=== PATIENT | male | born 1950 | race Caucasian/White ===

== ENCOUNTER 2020-09-29 11:30 | Emergency (ER) | payer OTHER, SELFPAY ==
[2020-09-29 11:31] VITALS: BP 189/86; PULSE 66; RESP 16; TEMP 36.3; O2SAT 98; BMI 28.0
--- NOTE | 2020-09-29 11:46 | CT_ITS ---
STUDY: CT ABDOMEN AND PELVIS WITHOUT CONTRAST REASON FOR EXAM: Male, 70 years old. Pain -- Right flank pain suspect stone vs appy RADIATION DOSAGE (If Supplied By Facility): CTDIvol = ( 14.28 ) mGy, DLP = ( 738.35 ) mGycm TECHNIQUE: Transaxial images were obtained from the dome of the diaphragm to the symphysis pubis without oral contrast, and without intravenous contrast. Sagittal and coronal images were reconstructed. Individualized dose optimization techniques were used for this CT. COMPARISON: None. FINDINGS: The visualized lung bases are unremarkable. There is decreased attenuation of the liver consistent with steatosis. Normal gallbladder and extrahepatic biliary system. Normal spleen. Normal pancreas. Normal bilateral adrenal glands. There is mild hydroureteronephrosis. There is a 3 mm calcification at the right UVJ (axial image #147 series 2) Unremarkable left kidney. Normal visualized stomach. Normal small intestine. There are multiple colonic diverticula consistent with diverticulosis. The appendix is visualized and appears normal. There is atherosclerotic calcifications of the abdominal aorta, Normal urinary bladder. Normal abdominal wall. There are diffuse degenerative changes of the visualized lumbar spine. CT/Abdomen/Pelvis without Cont IMPRESSION: 3 mm right UVJ calculus with mild hydronephrosis on the right. Electronically Signed: Jaren Brown MD at 12:21 EDT Tel , Service support ,
--- NOTE | 2020-09-29 11:49 | ED.DCSUM_ITS ---
- ER Visit Summary Date of Service: 09/29/20 Chief Complaint: Right flank pain History of Present Illness: The patient is a 70 M 3 of hypertension, gout and hypothyroidism. No prior abdominal surgeries. Patient states he was feeling fine until about 2 hours ago. He was at home sitting down watching TV when he had sudden onset of right flank and abdominal pain. He denies any nausea, vomiting, diarrhea or constipation. No melena. No dysuria. No fever or chills. Pain has been constant for the last 2 hours. Nothing particular makes it better or worse. Has never had pain like this before. Still has his appendix. No prior history of kidney stones. Physical Examination: Well-appearing older male accompanied by his . Vital signs stable and afebrile. HEENT exam unremarkable. Neck nontender no lymphadenopathy. Lungs clear to auscultation bilaterally. Heart regular rhythm rate about 65 no murmur. Abdomen soft. Nondistended normal bowel sounds no peritoneal signs. There is no reproducible abdominal tenderness. His right flank and lower quadrant pain is not reproducible. He has no Westfall sign. No McBurney's point tenderness. No obstruction. No pulsatile mass. Patient moving all 4 extremities. No edema. Neurologically is awake and alert with no focal motor deficits. Test Results: Normal white count of 7. Hemoglobin 15. Chemistries unremarkable except creatinine is elevated 1.75 I discussed that with the patient and his w rigo the need to have that reevaluated. Liver enzymes unremarkable. Urinalysis no signs of infection 250 occult blood on the macro. No signs of infection. CAT scan without contrast of the abdomen pelvis is read by the radiologist shows a 3 mm right UVJ stone with mild hydronephrosis on the right. Consistent with his pain and symptoms. Repeat exam at 1255 patient is doing well. We went over all his test results. He will be given 1 more dose of morphine prior to discharge. Emergency Department Course and Treatment: Older male with sudden onset right flank pain. Differential diagnosis at this time is primarily right-sided kidney stone. This could also be appendicitis versus other etiologies. Labs, urinalysis and CT are being obtained. He will be given IV morphine and Zofran. Treatment Plan: Urine strainer. Watch for stone. Return if worse. Fluids and rest. Prevent constipation. Disposition: Discharge Impression: Acute right-sided abdominal pain Canary to acute 3 mm right UVJ stone with mild hydronephrosis Mild renal insufficiency with a creatinine 1.75 This note was generated with [employer] dictation software. It may contain incorrect words, spelling, and punctuation that were not noted in review of the chart prior to signing ED Disposition - Plan for ED Patient: Referrals: [facility] Doctor,Out of [NON-STAFF] -
[2020-09-29] MEDS: 0.9% Normal Saline 1,000 ML 1000 ML IV (11:56)
[2020-09-29] MEDS: morphine 8 MG/ML Syringe 6 MG IV ×2 (11:57→13:01)
[2020-09-29] MEDS: Ondansetron 4 MG/2 ML Vial IV (11:57)
[2020-09-29 12:10] LABS: Bacteria 0 SEEN /hpf (None Seen); Mucous, Urine 0 SEEN /hpf (<or=2+); Squamous Epithelial Cells - UA 0 SEEN /hpf (0-5); White Blood Cells 0 SEEN /hpf (0-5)
[2020-09-29 12:11] LABS: Absolute Lymphocyte Count 2.56 X10^3/uL (0.83-4.51); Absolute Neutrophil Count 3.4 X10^3/uL (2.0-7.7); Basophil# 0.03 X10^3/uL; Basophil% 0.4 % (0-1); Color, Urine Yellow (Yellow); Eosinophil# 0.33 X10^3/uL; Eosinophils% 4.6 % (0-5); Glucose, Dipstick Normal (Normal); Hematocrit 46.2 % (40-54); Hemoglobin 15.3 g/dL (13.0-16.5); Ketone-Dipstick Negative (Negative); Leukocyte Esterase-Dipstick Negative /ul (Negative); Lymphocyte # 2.56 X10^3/ul (4.0); Lymphocyte % 35.8 % (19-41); Mean Corp Hgb Conc 33.1 g/dL (32-36); Mean Corpuscular Hgb 26.8 pg (27.0-32.0); Mean Corpuscular Volume 81.1 fL (80-94); Mean Platelet Vol. 10.2 fl (6.2-12.0); Monocyte# 0.79 X10^3/uL; NRBC Flagged by Analyzer 0 % (0-5); Neutrophil # 3.43 X10^3/uL (2.7-7.7); Neutrophil % 47.9 % (47-70); Nitrite-Dipstick Negative (Negative); Occult Blood-Urine 250 /ul (Negative); Platelet Count 178 K/mm3 (150-450); Protein-Dipstick 30 mg/dl (Negative); RBC Distribution Width CV 12.7 % (11.6-14.6); RBC Distribution Width SD 37.3 fl (35.1-43.9); Specific Gravity, Urine 1.015 (1.002-1.030); Urine Bilirubin Dipstick Negative (Negative); Urine Clarity Clear (Clear); Urine Urobilinogen Normal (Normal); Urine pH 6.5 (5.0 - 8.0); White Blood Count 7.2 K/mm3 (4.4-11.0)
[2020-09-29 12:21] LABS: Red Blood Cells-Urine 0-5 SEEN /hpf (0-5)
[2020-09-29 12:28] LABS: AST(SGOT) 27 U/L (15-37); Alanine Aminotransfer ALT/SGPT 46 U/L (16-61); Alkaline Phosphatase 88 U/L (45-117); Anion Gap 7 (5-15); BUN 18 mg/dL (7-18); BUN/Creat Ratio 10.3 RATIO (10-20); Chloride 105 mmol/L (98-107); Creatinine, Serum 1.75 mg/dL (0.70-1.30); EST Glomerular Filtration Rate 41 mL/min (>60); Est Glom Filt Rate - Afr Amer 50 mL/min (>60); Globulin 3.9 g/dL (2.2-4.2); Glucose 127 mg/dL (74-106); Potassium 3.7 mmol/L (3.5-5.1); Protein, Total 7.9 g/dL (6.4-8.2); Sodium Level 143 mmol/L (136-145)
[2020-09-29 12:30] VITALS: BP 167/80; PULSE 68; RESP 15
--- NOTE | 2020-09-29 12:57 | ED.DEP ---
ED Disposition - Plan for ED Patient: Disposition: Home or Assisted Living Instructions: ED Kidney Stone w/ Colic Prescriptions: Hydrocodone Bitart/Apap 5-325 [Emerado 5MG-325MG] 1 - 2 tablet PO Q4H PRN PRN 3 Days #14 tab PRN Reason: Pain Prescription Printed Referrals: [facility],Out of [NON-STAFF] - 1-2 Weeks Additional Instructions: If a 3 mm kidney stone on the right just above your bladder. This should pass. Strain your urine to ensure you passed the stone. You do not need to keep it you can throw it out. Fluids such as water, 7-Up or Gatorade. Emerado for pain. No driving while you are on the Emerado. Watch for constipation. Plenty of fluids and fiber and stool softener to prevent constipation. Return if intractable pain, vomiting or fever. Follow-up your doctor to have your kidney function rechecked today. Your creatinine was 1.75 that is higher than normal. Get it rechecked in the next 1 to 3 weeks.
[2020-09-29 13:25] VITALS: BP 175/87; PULSE 75; RESP 15
== END 2020-09-29 13:25 | disposition home or self-care (01) ==
PROVIDERS: Emergency Provider Emergency Medicine
DX: N13.2 Hydronephrosis with renal and ureteral calculous obstruction (principal); N28.9 Disorder of kidney and ureter, unspecified; I10 Essential (primary) hypertension; E03.9 Hypothyroidism, unspecified; M10.9 Gout, unspecified; Z79.899 Other long term (current) drug therapy
CPT/HCPCS: 74176; 80053; 81001; 85025; 96361; 96374; 96375; 99283; J7030; J2405

== ENCOUNTER 2023-10-25 19:18 | Inpatient (IN) | payer OTHER, SELFPAY ==
[2023-10-25 19:20] VITALS: BP 164/76; BP 182/80; PULSE 81; PULSE 85; RESP 16; TEMP 36.2; O2SAT 97; BMI 27.8
--- NOTE | 2023-10-25 20:01 | EKG12_ITS ---
Test Reason : CP Blood Pressure : / mmHG Vent. Rate : 086 BPM Atrial Rate : 086 BPM P-R Int : 168 ms QRS Dur : 096 ms QT Int : 348 ms P-R-T Axes : 044 017 001 degrees QTc Int : 416 ms Normal sinus rhythm Normal ECG Confirmed by МАРИНА DUNCAN MD ([id number]), editor book KEI ANAYA ([id number]) on 10/26/2023 8:28:20 AM Referred By: AR Confirmed By:МАРИНА DUNCAN MD
--- NOTE | 2023-10-25 20:08 | ED.VIS.CHEST ---
HPI <CASPER Galaviz - Last Filed: 10/25/23 22:13> History of Present Illness Chief Complaint: Chest Pain Narrative Narrative: Patient presenting today due to midsternal chest pain that radiates to his bilateral shoulder blades and jaw that started 3 days ago and acutely worsened today. He reports that the pain is a constant dull ache that is worse with exertion. He denies any cardiac history. He has not had any recent cardiac testing. He denies feeling short of breath or any fevers, chills, abdominal pain, nausea, or vomiting. He reports a PMH of hypertension, osteoarthritis, and psoriasis. PE Risk Factors: Negative for Recent Travel/Surgery, Recent Immobilization, Prior DVT or PE or Cancer PFSH <CASPER Galaviz - Last Filed: 10/25/23 22:13> PFSH Medical History GERD (gastroesophageal reflux disease) Hypertension Hypothyroid Psoriatic arthritis Home Medications adalimumab 40 mg/0.4 mL subcutaneous syringe kit 40 mg SQ QWEEK 09/29/20 [History Last Taken Unknown] allopurinol 100 mg tablet 200 mg PO DAILYCM 09/29/20 [History Last Taken Unknown] amlodipine 10 mg tablet 10 mg PO DAILY 09/29/20 [History Last Taken Unknown] propranolol 160 mg capsule,24 hr,extended release 160 mg PO DAILY 09/29/20 [History Last Taken Unknown] acetaminophen PO 10/25/23 [History Last Taken Unknown] aspirin 81 mg capsule 81 mg PO DAILY 10/25/23 [History Last Taken Unknown] cholecalciferol (vitamin D3) 125 mcg (5,000 unit) tablet (Vitamin D3) 125 mcg PO DAILY 10/25/23 [History Last Taken Unknown] esomeprazole magnesium 40 mg capsule,delayed release 40 mg PO DAILY 10/25/23 [History Last Taken Unknown] hydrochlorothiazide 25 mg tablet 25 mg PO DAILY 10/25/23 [History Last Taken Unknown] levothyroxine 100 mcg tablet (Euthyrox) 100 mcg PO DAILY 10/25/23 [History Last Taken Unknown] Allergy/AdvReac Type Severity Reaction Status Date / Time fish derived Allergy Severe Anaphylaxis Verified 10/25/23 19:23 [seafood - derived] shellfish derived Allergy Severe Anaphylaxis Verified 10/25/23 19:23 [seafood - shellfish] lisinopril AdvReac Other Verified 10/25/23 19:23 losartan AdvReac Other Verified 10/25/23 19:23 Social History Smoking Status: Former smoker ROS <CASPER Galaviz - Last Filed: 10/25/23 22:13> ROS ED Constitutional Constitutional ED: Denies chills or fever(s) Cardiovascular Cardiovascular: Reports chest pain; Denies palpitations Respiratory/Chest Respiratory/Chest: Denies cough or dyspnea Gastrointestinal Gastrointestinal: Denies abdominal pain, nausea or vomiting Musculoskeletal Musculoskeletal: Denies arthralgias or myalgias Integumentary Denies rash Neurologic Neurologic: Denies weakness EXAM <CASPER Galaviz - Last Filed: 10/25/23 22:13> Physical Exam Const Vital Signs: 10/25/23 19:20 10/25/23 19:20 10/25/23 19:27 Temperature 97.1 F L 97.1 F L Temperature Source Temporal Temporal Pulse Rate 85 81 Respiratory Rate 16 16 Respiratory Effort Short of Breath Blood Pressure 182/80 H 164/76 H Blood Pressure Mean 114 105 Pulse Ox 97 97 Oxygen Delivery Method Room Air Room Air 10/25/23 20:19 10/25/23 21:00 10/25/23 22:00 Temperature Temperature Source Pulse Rate 85 87 85 Respiratory Rate 16 16 16 Respiratory Effort Blood Pressure 150/70 H 157/71 H 138/65 H Blood Pressure Mean 96 99 89 Pulse Ox 97 97 94 Oxygen Delivery Method Room Air Room Air Room Air 10/25/23 22:41 Temperature 97.8 F Temperature Source Pulse Rate 82 Respiratory Rate 18 Respiratory Effort Blood Pressure 140/62 H Blood Pressure Mean 88 Pulse Ox 94 Oxygen Delivery Method Positive well nourished, well developed and no apparent distress General Appearance ED: well developed HEENT Reports normocephalic and head/scalp atraumatic Mouth ED: Yes moist mucous membranes normal Eyes PERRL and EOMs intact bilaterally Neck full ROM and supple Chest Wall inspection of chest normal Resp normal respiratory effort and clear to auscultation bilaterally Cardio regular rate and regular rhythm GI soft to palpation, non-tender, non-distended and no masses Back/Spine normal ROM and normal to inspection Extremity normal to inspection and full ROM Neuro oriented x3, CN's II-XII intact bilaterally, moves all extremities, no focal motor deficits and no sensory deficits noted Sensorium / Orientation: awake and alert Psych mental status grossly normal and thought process normal Skin no rashes or lesions noted and no wounds <Dr. Jamey Molina, - Last Filed: 10/26/23 00:37> Physical Exam Const Vital Signs: 10/25/23 19:20 10/25/23 19:20 10/25/23 19:27 Temperature 97.1 F L 97.1 F L Temperature Source Temporal Temporal Pulse Rate 85 81 Respiratory Rate 16 16 Respiratory Effort Short of Breath Blood Pressure 182/80 H 164/76 H Blood Pressure Mean 114 105 Pulse Ox 97 97 Oxygen Delivery Method Room Air Room Air 10/25/23 20:19 10/25/23 21:00 10/25/23 22:00 Temperature Temperature Source Pulse Rate 85 87 85 Respiratory Rate 16 16 16 Respiratory Effort Blood Pressure 150/70 H 157/71 H 138/65 H Blood Pressure Mean 96 99 89 Pulse Ox 97 97 94 Oxygen Delivery Method Room Air Room Air Room Air 10/25/23 22:41 Temperature 97.8 F Temperature Source Pulse Rate 82 Respiratory Rate 18 Respiratory Effort Blood Pressure 140/62 H Blood Pressure Mean 88 Pulse Ox 94 Oxygen Delivery Method <Dr. Jamey Molina, - Last Filed: 10/26/23 00:37> Heart Score History: Moderately Suspicious ECG: Normal Age: >/= 65 years Risk Factors: 1 or 2 Risk Factors Troponin: >/=3 x Normal Limit Score: 6 MDM <CASPER Galaviz - Last Filed: 10/25/23 22:13> [facility] Narrative Medical decision making narrative: Patient presenting today with chest pain that is worse with exertion, symptoms have been present for 3 days but acutely worsened today. He is well-appearing and in no acute distress. Cardiac workup will be obtained. He has a low Wells score and low modified Dubois score, low suspicion for PE. Chest x-ray negative for any acute cardiopulmonary abnormality, labs show sodium 134, BUN 22, creatinine 1.64, BUN slightly elevated but creatinine consistent with previous labs. He was given aspirin. Initial troponin 13, delta is pending. Workup is pending. He is scheduled to have outpatient cardiac testing done in the next few weeks. He is supposed to undergo a EGD tomorrow due to GERD. He did eat pizza today prior to his symptoms worsening and is wondering if this could be related to GERD, he was given a GI cocktail and will be reassessed. Patient was handed off to the attending, disposition pending. Lab Data Attestation: I reviewed the patient's lab results. Labs: Laboratory Results - last 24 hr 10/25/23 10/25/23 19:33 22:20 WBC 7.9 RBC 6.10 Hgb 16.5 Hct 48.1 MCV 78.9 L MCH 27.0 MCHC 34.3 RDW Std Deviation 35.9 RDW Coeff of Josiah 12.7 Plt Count 254 MPV 11.5 Immature Gran % (Auto) 0.400 Neut % (Auto) 79.6 H Lymph % (Auto) 18.8 L [place] % (Auto) 0.9 Eos % (Auto) 0.0 Baso % (Auto) 0.3 Absolute Neuts (auto) 6.3 Absolute Lymphs (auto) 1.49 Nucleated RBC % 0 PT 14.4 INR 1.1 APTT 32.3 Sodium 134 L Potassium 4.5 Chloride 104 Carbon Dioxide 22.0 Anion Gap 8 BUN 22 H Creatinine 1.64 H Estim Creat Clear Calc 44.83 Est GFR (MDRD) Af Amer 53 L Est GFR (MDRD) Non-Af 44 L BUN/Creatinine Ratio 13.4 Glucose 227 H Calcium 9.8 Troponin I High Sens 13 260 H* Radiography X-Ray: Read by ED Physician and Read by Radiologist Diagnostic Testing: Clinical Impression(s) from Imaging Studies Chest X-Ray 10/25/23 20:10 IMPRESSION: Degenerative changes, as described above. No demonstrated acute cardiopulmonary process. Electronically Signed: Landon Chakraborty MD at 20:34 EDT , EKG Initial EKG: Comments: 86 bpm, normal sinus rhythm, no ST elevation, no signs of cardiac ischemia, reviewed and interpreted by attending ED physician <Dr. Jamey Molina, DO - Last Filed: 10/26/23 00:37> [facility] Narrative Medical decision making narrative: Patient presenting today with chest pain that is worse with exertion, symptoms have been present for 3 days but acutely worsened today. He is well-appearing and in no acute distress. Cardiac workup will be obtained. He has a low Wells score and low modified Dubois score, low suspicion for PE. Chest x-ray negative for any acute cardiopulmonary abnormality, labs show sodium 134, BUN 22, creatinine 1.64, BUN slightly elevated but creatinine consistent with previous labs. He was given aspirin. Initial troponin 13, delta is pending. Workup is pending. He is scheduled to have outpatient cardiac testing done in the next few weeks. He is supposed to undergo a EGD tomorrow due to GERD. He did eat pizza today prior to his symptoms worsening and is wondering if this could be related to GERD, he was given a GI cocktail and will be reassessed. This patient was seen with a PA/MARINE SAFETY OFFICER Individually assessed they patient including history and physical. I have reviewed everything on the chart that is available and agree with the documentation provided by the PA/MARINE SAFETY OFFICER including discussion about the assessment, treatment plan, discussion, and return precautions. Patient presenting with chest pain epigastric pain. He is really had this for about 3 days and is worsened today but it has been pretty persistent. He does state that it is exertional to some degree over the last 3 days and is worse today. Patient states that he has had 3 days of symptoms and today noticed pressure and burning in his epigastrium. He did eat pizza today. He states that he supposed to go to the [facility] tomorrow for upper endoscopy has been told that he has inflammation of stomach and polyps. He supposed to have a repeat upper endoscopy tomorrow. Cardiac workup was pursued. EKG on my interpretation shows a sinus rhythm with a ventricular to 86 beats minute without sign of ischemic change or ectopy. Chest x-ray my interpretation shows no acute process. CBC showed a normal white blood cell count 7.9. Hemoglobin 16.5. Platelets normal at 254. Creatinine near baseline at 1.64. Glucose 227 without anion gap initial troponin is 13 and the patient had been reporting symptoms all day long worsening after pizza so we gave him a GI cocktail and he relates that his pain was improved. At this point we discussed foods he should avoid. Given the patient's improved symptoms he felt he was stable for discharge home however he had a delta troponin drawn before he left the ER and it returned at 260 from 13 on his initial evaluation. Patient had left the ER but was called back immediately and returned. He states he still has some pain in his shoulder blades but his dyspepsia is improved. He is given nitroglycerin to treat his chest pain. Will discuss with cardiology and the hospitalist for admission. Patient already received aspirin earlier. Discussed with Dr. Khanna who recommended admission and he will evaluate him in the morning. Discussed with hospitalist for admission. Impression: 1. NSTEMI 2. Dyspepsia Lab Data Labs: Laboratory Results - last 24 hr 10/25/23 10/25/23 19:33 22:20 WBC 7.9 RBC 6.10 Hgb 16.5 Hct 48.1 MCV 78.9 L MCH 27.0 MCHC 34.3 RDW Std Deviation 35.9 RDW Coeff of Josiah 12.7 Plt Count 254 MPV 11.5 Immature Gran % (Auto) 0.400 Neut % (Auto) 79.6 H Lymph % (Auto) 18.8 L [place] % (Auto) 0.9 Eos % (Auto) 0.0 Baso % (Auto) 0.3 Absolute Neuts (auto) 6.3 Absolute Lymphs (auto) 1.49 Nucleated RBC % 0 PT 14.4 INR 1.1 APTT 32.3 Sodium 134 L Potassium 4.5 Chloride 104 Carbon Dioxide 22.0 Anion Gap 8 BUN 22 H Creatinine 1.64 H Estim Creat Clear Calc 44.83 Est GFR (MDRD) Af Amer 53 L Est GFR (MDRD) Non-Af 44 L BUN/Creatinine Ratio 13.4 Glucose 227 H Calcium 9.8 Troponin I High Sens 13 260 H* Radiography Diagnostic Testing: Clinical Impression(s) from Imaging Studies Chest X-Ray 10/25/23 20:10 IMPRESSION: Degenerative changes, as described above. No demonstrated acute cardiopulmonary process. Electronically Signed: Landon Chakraborty MD at 20:34 EDT , Discharge Plan Triage Chief Complaint: Chest Pain ED Midlevel Provider: Venice Hartman ED Provider: Jamey Molina Dx/Rx/DC Orders Clinical Impression: Hx of gastroesophageal reflux (GERD), Chest pain Instructions: ED Chest Pain, Uncertain Cause, ED GERD (Adult) Prescriptions: No Action propranolol 160 MG capsule,extended release 24 hr 160 mg PO DAILY allopurinol 100 MG tablet 200 mg PO DAILYCM amlodipine 10 MG tablet 10 mg PO DAILY adalimumab 40 MG/0.4 ML syringe kit 40 mg SQ QWEEK levothyroxine [Euthyrox] 100 mcg tablet 100 mcg PO DAILY esomeprazole magnesium 40 mg capsule,delayed release(DR/EC) 40 mg PO DAILY hydrochlorothiazide 25 mg tablet 25 mg PO DAILY aspirin 81 mg capsule 81 mg PO DAILY cholecalciferol (vitamin D3) [Vitamin D3] 125 mcg (5,000 unit) tablet 125 mcg PO DAILY acetaminophen [Tylenol] PO [facility] [Primary Care Provider] - Activity Restrictions/Additional Instructions: Please follow-up with your PCP in the next 5 to 7 days. Return for any worsening of your symptoms. Disposition Disposition: Home, Self Care Discharge Date/Time: 10/25/23 22:45
--- NOTE | 2023-10-25 20:10 | RAD_ITS ---
STUDY: X-RAY CHEST REASON FOR EXAM: Male, 73 years old. Chest pain TECHNIQUE: Frontal and lateral views of the chest. COMPARISON: None. FINDINGS: The lungs are clear and expanded. There is no demonstrated pleural abnormality. Normal size heart. Normal mediastinum and neelam. Normal visualized pulmonary arteries. There is atherosclerotic calcification of the aortic arch. There is mild degenerative change of the spine. There is a right shoulder replacement. There is no demonstrated abnormality of the visualized soft tissue structures of the upper abdomen. RAD/Chest PA and Lateral IMPRESSION: Degenerative changes, as described above. No demonstrated acute cardiopulmonary process. Electronically Signed: Landon Chakraborty MD at 20:34 EDT ,
[2023-10-25 20:17] LABS: Absolute Lymphocyte Count 1.49 X10^3/uL (0.83-4.51); Absolute Neutrophil Count 6.3 X10^3/uL (2.0-7.7); Basophil# 0.02 X10^3/uL; Basophil% 0.3 % (0-1); Hematocrit 48.1 % (40-54); Hemoglobin 16.5 g/dL (13.0-16.5); Lymphocyte # 1.49 X10^3/ul (0.83-4.51); Lymphocyte % 18.8 % (19-41); Mean Corp Hgb Conc 34.3 g/dL (32-36); Mean Corpuscular Volume 78.9 fL (80-94); Mean Platelet Vol. 11.5 fl (6.2-12.0); Monocyte# 0.07 X10^3/uL; Monocyte% 0.9 % (0-10); NRBC Flagged by Analyzer 0 % (0-5); Neutrophil # 6.33 X10^3/uL (2.7-7.7); Neutrophil % 79.6 % (47-70); Platelet Count 254 K/mm3 (150-450); RBC Distribution Width CV 12.7 % (11.6-14.6); RBC Distribution Width SD 35.9 fl (35.1-43.9); White Blood Count 7.9 K/mm3 (4.4-11.0)
[2023-10-25 20:19] VITALS: BP 150/70; PULSE 85; RESP 16; O2SAT 97
[2023-10-25] MEDS: Aspirin 81 MG TAB.CHEW 324 MG PO (20:19)
[2023-10-25 20:55] LABS: Anion Gap 8 (5-15); BUN 22 mg/dL (7-18); BUN/Creat Ratio 13.4 RATIO (10-20); Calcium,Total 9.8 mg/dL (8.5-10.1); Chloride 104 mmol/L (98-107); Creatinine, Serum 1.64 mg/dL (0.70-1.30); EST Glomerular Filtration Rate 44 mL/min (>60); Est Glom Filt Rate - Afr Amer 53 mL/min (>60); Estimated Creatinine Clearance 44.83 ml/min; Glucose 227 mg/dL (74-106); Potassium 4.5 mmol/L (3.5-5.1); Sodium Level 134 mmol/L (136-145); Troponin-I HS (w/2H Reflex) 13 pg/mL (3.0-78.0)
[2023-10-25 21:00] VITALS: BP 157/71; PULSE 87; RESP 16; O2SAT 97
[2023-10-25 22:00] VITALS: BP 138/65; PULSE 85; RESP 16; O2SAT 94
[2023-10-25 22:15] LABS: Reflex Troponin-HS? (from REC) Y
[2023-10-25] MEDS: Mag Hydrox/Al Hydrox/Simeth 30 ML UDC PO (22:15)
[2023-10-25 22:41] VITALS: BP 140/62; PULSE 82; RESP 18; TEMP 36.6; O2SAT 94
[2023-10-25 22:49] LABS: Troponin-I HS 260 pg/mL (3.0-78.0)
--- NOTE | 2023-10-25 23:36 | EKG12_ITS ---
Test Reason : DYSRHYTHMIA Blood Pressure : / mmHG Vent. Rate : 084 BPM Atrial Rate : 084 BPM P-R Int : 190 ms QRS Dur : 098 ms QT Int : 354 ms P-R-T Axes : 044 017 000 degrees QTc Int : 418 ms Normal sinus rhythm Normal ECG Confirmed by DAKOTA GOSS, МАРИНА ([id number]), videotape editor KEI ANAYA ([id number]) on 10/26/2023 8:30:10 AM Referred By: YARA Confirmed By:МАРИНА DUNCAN MD
--- NOTE | 2023-10-25 23:42 | ED.RN ---
[facility]ED [facility] ABOUT THE PT BEING ADMITTED. THEY DID NOT ANSWER, IT RANG UNTIL I WAS DISCONNECTED
[2023-10-25 23:55] LABS: International Normalized Ratio 1.1; Prothrombin Time (Protime)PT. 14.4 SECONDS (11.7-14.9)
[2023-10-25 23:56] LABS: Partial Thromboplast Time 32.3 Seconds (24.1-36.2)
[2023-10-26] VITALS (12 sets, daily range): BP systolic 125–162; BP diastolic 62–86; PULSE 65–84; RESP 15–25; TEMP 36.5–36.6; O2SAT 95–99; BMI 28.0
[2023-10-26] MEDS: Nitroglycerin SL (ED/IMG/CATH) 0.4 MG TABLET SL (00:07)
[2023-10-26] MEDS: HEPARIN/D5w 25,000 UNITS 25,000 UNITS/250 ML IV.SOLN. 10 UNITS CONT INF (00:09)
[2023-10-26] MEDS: Heparin Injection (Vial) 5,000 UNIT/ML VIAL 4000 UNIT IV (00:09)
--- NOTE | 2023-10-26 01:51 | PCM.HP.STD ---
HPI - General General Date of Admission: 10/26/23 HPI Narrative MARK ZAPATA, is a 73 M who presents to the hospital with 3 days of chest pain. Initially thought it was reflux and the GI cocktail did help alleviate some of the pain today however he continues to have central chest pressure. He denies radiation of the pain/pressure but states that over the last 3 days he has noticed that it occurs with activity and goes away with rest. He has never had any type of cardiac workup in the past and initially his troponin was normal at 13 and then the delta troponin climbed to the 260. He was started on a heparin drip in the ER, of note EKG is nonischemic. [facility] Medical History (Updated 10/25/23 @ 22:13 by CASPER Galaviz) GERD (gastroesophageal reflux disease) Hypertension Hypothyroid Psoriatic arthritis Home Medications adalimumab 40 mg/0.4 mL subcutaneous syringe kit 40 mg SQ QWEEK 09/29/20 [History Last Taken Unknown] allopurinol 100 mg tablet 200 mg PO DAILYCM 09/29/20 [History Last Taken Unknown] amlodipine 10 mg tablet 10 mg PO DAILY 09/29/20 [History Last Taken Unknown] propranolol 160 mg capsule,24 hr,extended release 160 mg PO DAILY 09/29/20 [History Last Taken Unknown] acetaminophen PO 10/25/23 [History Last Taken Unknown] aspirin 81 mg capsule 81 mg PO DAILY 10/25/23 [History Last Taken Unknown] cholecalciferol (vitamin D3) 125 mcg (5,000 unit) tablet (Vitamin D3) 125 mcg PO DAILY 10/25/23 [History Last Taken Unknown] esomeprazole magnesium 40 mg capsule,delayed release 40 mg PO DAILY 10/25/23 [History Last Taken Unknown] hydrochlorothiazide 25 mg tablet 25 mg PO DAILY 10/25/23 [History Last Taken Unknown] levothyroxine 100 mcg tablet (Euthyrox) 100 mcg PO DAILY 10/25/23 [History Last Taken Unknown] Allergy/AdvReac Type Severity Reaction Status Date / Time fish derived Allergy Severe Anaphylaxis Verified 10/25/23 19:23 [seafood - derived] shellfish derived Allergy Severe Anaphylaxis Verified 10/25/23 19:23 [seafood - shellfish] lisinopril AdvReac Other Verified 10/25/23 19:23 losartan AdvReac Other Verified 10/25/23 19:23 Family History (Updated 10/26/23 @ 01:[address] Abdirizak Jason MD) Other CVA (cerebral vascular accident) Surgical History (Updated 10/26/23 @ 01:[address] Abdirizak Jason MD) History of knee replacement Social History Smoking Status: Former smoker ROS Constitutional Constitutional: Denies chills, fatigue, fever(s) or malaise Eyes Eyes: Denies blurry vision ENT HEENT: Denies headache(s) or nasal discharge Cardiovascular Cardiovascular: Reports chest pain; Denies dyspnea on exertion or syncope Respiratory/Chest Respiratory/Chest: Denies cough, shortness of breath at rest or shortness of breath with exertion Gastrointestinal Gastrointestinal: Denies constipation, diarrhea, nausea or vomiting Genitourinary Genitourinary: Denies dysuria Neurologic Neurologic: Denies focal weakness, numbness or tremor(s) Psychiatric Psychiatric: Denies anxiety or depression Vital Signs Vital Signs Vital Signs: 10/25/23 19:20 10/25/23 19:20 10/25/23 19:27 Temperature 97.1 F L 97.1 F L Temperature Source Temporal Temporal Pulse Rate 85 81 Respiratory Rate 16 16 Respiratory Effort Short of Breath Blood Pressure 182/80 H 164/76 H Blood Pressure Mean 114 105 Pulse Ox 97 97 Oxygen Delivery Method Room Air Room Air 10/25/23 20:19 10/25/23 21:00 10/25/23 22:00 Temperature Temperature Source Pulse Rate 85 87 85 Respiratory Rate 16 16 16 Respiratory Effort Blood Pressure 150/70 H 157/71 H 138/65 H Blood Pressure Mean 96 99 89 Pulse Ox 97 97 94 Oxygen Delivery Method Room Air Room Air Room Air 10/25/23 22:41 10/26/23 00:00 10/26/23 00:30 Temperature 97.8 F Temperature Source Pulse Rate 82 84 80 Respiratory Rate 18 20 H 18 Respiratory Effort Blood Pressure 140/62 H 157/70 H 125/62 H Blood Pressure Mean 88 95 78 Pulse Ox 94 Oxygen Delivery Method 10/26/23 01:00 Temperature Temperature Source Pulse Rate 78 Respiratory Rate 25 H Respiratory Effort Blood Pressure 139/71 H Blood Pressure Mean 90 Pulse Ox Oxygen Delivery Method Weight Weight: 189 lb Body Mass Index (BMI) 27.8 Physical Exam Narrative General: Alert, Oriented x3, Cooperative, No apparent distress HEENT: Atraumatic, PERRLA, EOMI, Normocephalic Oral: Moist Mucosa Neck: Supple, No JVD Lungs: Clear to auscultation, Normal air movement, No rhonchi, No wheeze, No rales Cardiovascular: Regular rate, Regular Rhythm, Normal S1, Normal S2, No murmurs Abdomen: Soft, Non Tender, Non-Distended, No Hepato-splenomegaly Extremities: No edema, Capillary Refill Less than 3 Seconds Skin: No rashes, No breakdown Musculoskeletal: No Tenderness to Palpation of Joints or Extremities Neurological: No focal neurological deficits, Motor Exam 5/5 strength throughout, Sensory exam intact to light touch and pain Psych/Mental Status: Normal Affect, Appropriate Results Lab / Micro Data 10/25/23 19:33 10/25/23 19:33 Labs: Laboratory Results - last 24 hr 10/25/23 19:33: WBC 7.9, RBC 6.10, Hgb 16.5, Hct 48.1, MCV 78.9 L, MCH 27.0, MCHC 34.3, RDW Std Deviation 35.9, RDW Coeff of Josiah 12.7, Plt Count 254, MPV 11.5, Immature Gran % (Auto) 0.400, Neut % (Auto) 79.6 H, Lymph % (Auto) 18.8 L, [place] % (Auto) 0.9, Eos % (Auto) 0.0, Baso % (Auto) 0.3, Absolute Neuts (auto) 6.3, Absolute Lymphs (auto) 1.49, Nucleated RBC % 0, PT 14.4, INR 1.1, APTT 32.3, Sodium 134 L, Potassium 4.5, Chloride 104, Carbon Dioxide 22.0, Anion Gap 8, BUN 22 H, Creatinine 1.64 H, Estim Creat Clear Calc 44.83, Est GFR (MDRD) Af Amer 53 L, Est GFR (MDRD) Non-Af 44 L, BUN/Creatinine Ratio 13.4, Glucose 227 H, Calcium 9.8, Troponin I High Sens 13 10/25/23 22:20: Troponin I High Sens 260 H* Imaging Radiology Impression Chest X-Ray 10/25/23 20:10 IMPRESSION: Degenerative changes, as described above. No demonstrated acute cardiopulmonary process. Electronically Signed: Landon Chakraborty MD at 20:34 EDT , Assessment & Plan Assessment/Plan (1) Chest pain: PLAN: Plan 1. Non-STEMI/essential HTN ? Continue with the heparin drip ? Continue with his home aspirin ? Continue with his home blood pressure medications, will monitor make adjustments ? Consult cardiology, will obtain serial troponins ? Will obtain an echo ? Lipid panel in the morning 2. Hypothyroidism ? Stable, will obtain a TSH ? Continue with Synthroid 3. Gout ? Stable ? Continue with his home allopurinol 4. GERD ? Stable ? Continue with PPI 5. History of psoriatic arthritis ? It appears that he used to be on adalimumab ? Continue with outpatient follow-up and management DVT: Heparin drip 75 minutes was spent on direct patient care, including documentation as well as chart review and collaboration with colleagues Charges/Coding Visit Charges Inpatient E&M: 53769 Init Hosp L3
[2023-10-26 03:38] LABS: Absolute Neutrophil Count 9.8 X10^3/uL (2.0-7.7); Basophil# 0.02 X10^3/uL; Basophil% 0.2 % (0-1); Hematocrit 43.8 % (40-54); Mean Corp Hgb Conc 34.2 g/dL (32-36); Mean Corpuscular Hgb 26.8 pg (27.0-32.0); Mean Corpuscular Volume 78.4 fL (80-94); Mean Platelet Vol. 10.1 fl (6.2-12.0); Monocyte% 2.4 % (0-10); NRBC Flagged by Analyzer 0 % (0-5); Neutrophil # 9.83 X10^3/uL (2.7-7.7); Neutrophil % 79.8 % (47-70); Platelet Count 220 K/mm3 (150-450); RBC Distribution Width CV 12.6 % (11.6-14.6); RBC Distribution Width SD 35.7 fl (35.1-43.9); Red Blood Count 5.59 M/mm3 (4.6-6.2); White Blood Count 12.3 K/mm3 (4.4-11.0)
[2023-10-26 04:10] LABS: Anion Gap 9 (5-15); BUN 25 mg/dL (7-18); BUN/Creat Ratio 17.2 RATIO (10-20); Calcium,Total 9.5 mg/dL (8.5-10.1); Chloride 104 mmol/L (98-107); Cholesterol 159 mg/dL (200); Creatinine, Serum 1.45 mg/dL (0.70-1.30); EST Glomerular Filtration Rate 51 mL/min (>60); Est Glom Filt Rate - Afr Amer 62 mL/min (>60); Estimated Creatinine Clearance 50.77 ml/min; Glucose 158 mg/dL (74-106); High Density Lipoprotein 34 mg/dL; Potassium 3.9 mmol/L (3.5-5.1); Sodium Level 136 mmol/L (136-145); Thyroid Stim Hormone (TSH) 0.02 uIU/mL (0.358-3.74); Triglycerides 106 mg/dL; Very Low Density Lipoprotein 21 mg/dL (5-40)
[2023-10-26 04:18] LABS: Troponin-I HS 2224 pg/mL (3.0-78.0)
--- NOTE | 2023-10-26 05:55 | ECHOCS_ITS ---
Reason For Study: NSTEMI, chest pain Procedure This was a 2D Doppler, Color Flow transthoracic echocardiogram. The study was technically difficult. Exam performed portable in ICU/CCU. Left Ventricle Normal LV size. Mild concentric left ventricular hypertrophy. Left ventricular systolic function is lower limits of normal. The estimated ejection fraction is 50 %. Stage 1 diastolic dysfunction. Mild segmental systolic dysfunction (see wall motion). [place] : Hypokinetic. Mid-anteroseptal : Hypokinetic. Mid-Anterior : Hypokinetic. Right Ventricle Normal RV size. Normal systolic function. Atria The left atrium is mildly enlarged. Normal right atrium. Mitral Valve Normal mitral valve. Tricuspid Valve Normal tricuspid valve. Aortic Valve Trisinus/trileaflet aortic valve. Mild focal aortic valve calcification. Pulmonic Valve Normal pulmonic valve. Great Vessels Normal aortic root. The pulmonary artery is normal size. Normal inferior vena cava. Pericardium/Pleural No pericardial effusion. Medication Diluted definity 1.0ml given slow IV push to enhance endocardial definition. MMode/2D Measurements & Calculations LVIDd: 5.0 cm IVSd: 1.3 cm Ao root diam: 3.1 cm LVIDs: 3.3 cm LVPWd: 1.2 cm RVDd: 3.5 cm FS: 33.7 % LAV(MOD-bp): 85.2 ml LVAd ap4: 32.5 cm2 LVAs ap2: 18.4 cm2 LAV(MOD-bp) Indexed: 42.2 ml/m2 LVLd ap4: 7.6 cm LVLs ap2: 6.9 cm LAV(MOD-sp2): 68.5 ml EDV(MOD-sp4): 115.0 ml ESV(MOD-sp2): 40.7 ml LAV(MOD-sp4): 72.6 ml EDV(sp4-el): 118.3 ml ESV(sp2-el): 42.0 ml LVAs ap4: 20.1 cm2 LVLs ap4: 6.6 cm ESV(MOD-sp4): 50.2 ml ESV(sp4-el): 52.3 ml EF(MOD-sp4): 56.4 % EF(sp4-el): 55.8 % SV(MOD-sp4): 64.8 ml SV(sp4-el): 66.0 ml LA A4 area: 23.9 cm2 LA dimension(2D): 4.6 cm RA A4 area: 13.5 cm2 TAPSE: 2.6 cm Time Measurements MV dec time: 0.24 sec Doppler Measurements & Calculations MV E max dimitris: 68.8 cm/sec Lat Peak E' Dimitris: 6.8 cm/sec Med Peak E' Dimitris: 6.5 cm/sec MV A max dimitris: 106.3 cm/sec E/E' lat: 10.1 E/E' med: 10.5 MV E/A: 0.65 MV dec slope: 290.0 cm/sec2 Ao V2 max: 170.8 cm/sec LV V1 max: 140.0 cm/sec Ao max P.7 mmHg LV V1 max P.8 mmHg Ao V2 mean: 111.6 cm/sec LV V1 mean P.4 mmHg Ao mean P.8 mmHg LV V1 mean: 99.5 cm/sec Ao V2 VTI: 35.7 cm LV V1 VTI: 30.3 cm AV (velocity ratio): 0.85 PA V2 max: 127.5 cm/sec PA V2 mean: 95.0 cm/sec ECHO/Echo Complete W/ Contrast Interpretation Summary Normal LV size. Left ventricular systolic function is lower limits of normal. The estimated ejection fraction is 50 %. Stage 1 diastolic dysfunction. Mild segmental systolic dysfunction (see wall motion). Mild concentric left ventricular hypertrophy. The left atrium is mildly enlarged. Contrast injection was performed. Ordering Physician: Abdirizak Jason Referring Physician: [facility] Performed By: Lisa Kim RDCS
[2023-10-26] MEDS: 0.9% Saline Lock 10 ML Syringe IV (06:02)
[2023-10-26 06:23] LABS: Partial Thromboplast Time 72.7 Seconds (24.1-36.2)
--- NOTE | 2023-10-26 06:52 | PN.HOSP_ITS ---
Reason for Visit Reason for Visit: Diagnoses Chest pain, unspecified (10/26/23) Subjective Subjective No further chest pain. Objective Data Objective Data Vital Signs: Vital Signs Temp Pulse Resp BP Pulse Ox O2 Del Method 36.6 C 79 16 143/72 H 97 Room Air 10/26/23 03:00 10/26/23 03:00 10/26/23 03:00 10/26/23 03:00 10/26/23 03:00 10/26/23 03:00 Oxygen Delivery Method Room Air Weight: 86 kg Body Mass Index (BMI) 28.0 Intake & Output: Intake and Output for Last 24 Hours 10/24/23 10/25/23 10/26/23 23:59 23:59 23:59 Intake Total 65 / 65 Balance 65 / 65 Lab / Micro Data 10/26/23 03:32 10/26/23 03:32 Labs: Laboratory Results - last 24 hr 10/25/23 19:33: WBC 7.9, RBC 6.10, Hgb 16.5, Hct 48.1, MCV 78.9 L, MCH 27.0, MCHC 34.3, RDW Std Deviation 35.9, RDW Coeff of Josiah 12.7, Plt Count 254, MPV 11.5, Immature Gran % (Auto) 0.400, Neut % (Auto) 79.6 H, Lymph % (Auto) 18.8 L, [place] % (Auto) 0.9, Eos % (Auto) 0.0, Baso % (Auto) 0.3, Absolute Neuts (auto) 6.3, Absolute Lymphs (auto) 1.49, Nucleated RBC % 0, PT 14.4, INR 1.1, APTT 32.3, Sodium 134 L, Potassium 4.5, Chloride 104, Carbon Dioxide 22.0, Anion Gap 8, BUN 22 H, Creatinine 1.64 H, Estim Creat Clear Calc 44.83, Est GFR (MDRD) Af Amer 53 L, Est GFR (MDRD) Non-Af 44 L, BUN/Creatinine Ratio 13.4, Glucose 227 H, Calcium 9.8, Troponin I High Sens 13 10/25/23 22:20: Troponin I High Sens 260 H* 10/26/23 03:32: WBC 12.3 H, RBC 5.59, Hgb 15.0, Hct 43.8, MCV 78.4 L, MCH 26.8 L , MCHC 34.2, RDW Std Deviation 35.7, RDW Coeff of Josiah 12.6, Plt Count 220, MPV 10.1, Immature Gran % (Auto) 0.600, Neut % (Auto) 79.8 H, Lymph % (Auto) 17.0 L, [place] % (Auto) 2.4, Eos % (Auto) 0.0, Baso % (Auto) 0.2, Absolute Neuts (auto) 9.8 H, Absolute Lymphs (auto) 2.10, Nucleated RBC % 0, Sodium 136, Potassium 3.9 , Chloride 104, Carbon Dioxide 23.0, Anion Gap 9, BUN 25 H, Creatinine 1.45 H, Estim Creat Clear Calc 50.77, Est GFR (MDRD) Af Amer 62, Est GFR (MDRD) Non-Af 51 L, BUN/Creatinine Ratio 17.2, Glucose 158 H, Calcium 9.5, Troponin I High Sens 2224 H*, Triglycerides 106, Cholesterol 159, LDL Cholesterol 104, VLDL Cholesterol 21, HDL Cholesterol 34 L, TSH 0.02 L 10/26/23 06:01: APTT 72.7 H Radiography Diagnostic Testing: Radiology Impression Chest X-Ray 10/25/23 20:10 IMPRESSION: Degenerative changes, as described above. No demonstrated acute cardiopulmonary process. Electronically Signed: Landon Chakraborty MD at 20:34 EDT Reading Location ID and State: [address] [place] [address] , Service support , Physical Exam Const alert and no apparent distress HEENT head/scalp atraumatic and moist oral mucous membranes Resp normal respiratory effort and no retractions Cardio regular rate, regular rhythm, S1 normal heart sound and S2 normal heart sound GI normal to inspection, nondistended, normoactive bowel sounds, soft to palpation, non-tender and non-distended Extremity normal to inspection, full ROM and no clubbing, cyanosis or edema Neuro oriented x3, CN's II-XII intact bilaterally, moves all extremities and no focal motor deficits Sensorium / Orientation: awake, alert, oriented to person and oriented to place Assessment & Plan Assessment/Plan (1) Chest pain: PLAN: Plan Non-STEMI * home aspirin. Continue statin. * per cardiology,l high-grade LAD stenosis. Recommending transfer for evaluation for CABG. * Transfer to [place] initiated. * Trops went from 260 to 2224 * Echo shows an EF of 50% * Restart anticoagulation with enoxaparin. Chronic conditions: * Hypothyroidism? Stable, will obtain a TSH? Continue with Synthroid * Gout? Stable? Continue with his home allopurinol * GERD? Stable? Continue with PPI * History of psoriatic arthritis? It appears that he used to be on adalimumab? Continue with outpatient follow-up and management * HTN: stable. continue amlodipine, HCTZ, propranolol. DVT: not indicated as already anticoagulated. Charges/Coding Procedures Hospitalists Procedures: Other Procedure - See Report (Nonbillable rounding as patient was admitted after midnight.)
--- NOTE | 2023-10-26 07:06 | CON.PCM.CA_ITS ---
Assessment & Plan Assessment/Plan (1) NSTEMI (non-ST elevated myocardial infarction): PLAN: He does present with chest discomfort and abnormal cardiac enzymes suggestive of a non-ST elevation myocardial infarction. His EKG changes are c oncerning as well as his cardiac enzymes. * My recommendation will be to proceed with a left heart catheterization and an echocardiogram he should be hydrated before. * His echocardiogram demonstrated apical hypokinesis. See full result. His cardiac catheterization demonstrated a distal left main high-grade and ostial 99% left anterior descending artery stenotic lesion. The left anterior descending artery itself had mild disease. The circumflex artery was nondominant with mild disease. The right coronary artery was dominant with mild nonobstructive disease. Ejection fraction was estimated to be approximately 50%. Based on the above angiographic findings the patient should be transferred to a tertiary care facility for coronary bypass surgery. (2) Hypertension: PLAN: Will obtain an echocardiogram to look at wall thickness. In the meantime he will continue with his amlodipine Will suggest switching his Inderal to Toprol XL. Further recommendations will be made based on the results of the above tests. HPI Consult Data Date of Consult: 10/26/23 HPI Narrative HPI Narrative: MARK ZAPATA, is a 73 M who presents to the emergency room with complaints of chest discomfort described as a heaviness across his chest starting about 3 days ago. Yesterday he had some pizza and he had similar discomfort. He came to the emergency room was given a GI prep and it went away. He started feeling it in his back. They had decided that it was likely GI but they obtained cardiac enzymes and so they called him to come back to the emergency room after the cardiac enzymes were abnormal. Cardiology was called for further evaluation and management. His EKG on presentation demonstrated T wave abnormalities laterally. He has had no dizziness or diaphoresis no near syncope or syncope he has not had any chest discomfort since arriving in the hospital. He does have a previous history of hypertension. [facility] Medical History (Updated 10/26/23 @ 07:[address] Torsten Khanna MD) GERD (gastroesophageal reflux disease) Hypertension Hypothyroid Psoriatic arthritis Home Medications adalimumab 40 mg/0.4 mL subcutaneous syringe kit 40 mg SQ QWEEK 09/29/20 [History Last Taken Unknown] allopurinol 100 mg tablet 200 mg PO DAILYCM 09/29/20 [History Last Taken Unknown] amlodipine 10 mg tablet 10 mg PO DAILY 09/29/20 [History Last Taken Unknown] propranolol 160 mg capsule,24 hr,extended release 160 mg PO DAILY 09/29/20 [Hi story Last Taken Unknown] acetaminophen PO 10/25/23 [History Last Taken Unknown] aspirin 81 mg capsule 81 mg PO DAILY 10/25/23 [History Last Taken Unknown] cholecalciferol (vitamin D3) 125 mcg (5,000 unit) tablet (Vitamin D3) 125 mcg PO DAILY 10/25/23 [History Last Taken Unknown] esomeprazole magnesium 40 mg capsule,delayed release 40 mg PO DAILY 10/25/23 [History Last Taken Unknown] hydrochlorothiazide 25 mg tablet 25 mg PO DAILY 10/25/23 [History Last Taken Unknown] levothyroxine 100 mcg tablet (Euthyrox) 100 mcg PO DAILY 10/25/23 [History Last Taken Unknown] Allergy/AdvReac Type Severity Reaction Status Date / Time fish derived Allergy Severe Anaphylaxis Verified 10/25/23 19:23 [seafood - derived] shellfish derived Allergy Severe Anaphylaxis Verified 10/25/23 19:23 [seafood - shellfish] lisinopril AdvReac Other Verified 10/25/23 19:23 losartan AdvReac Other Verified 10/25/23 19:23 Family History Other CVA (cerebral vascular accident) Surgical History History of knee replacement Social History Smoking Status: Former smoker ROS Constitutional Constitutional: Denies fever(s) or weight loss Eyes Eyes: Reports systems reviewed and no addt'l complaints, except as documented ENT HEENT: Reports systems reviewed and no addt'l complaints, except as documented Cardiovascular Cardiovascular: Reports chest pain at rest, chest pain with activity and dyspnea at rest; Denies dyspnea on exertion, edema, palpitations or paroxysmal nocturnal dyspnea Respiratory/Chest Respiratory/Chest: Denies dyspnea on exertion, productive cough, shortness of breath at rest or shortness of breath with exertion Gastrointestinal Gastrointestinal: Denies change in bowel habits, nausea, vomiting or weight changes Genitourinary Genitourinary: Denies difficulty urinating Musculoskeletal Musculoskeletal: Denies joint stiffness or muscle weakness Integumentary Integumentary: Denies lesions Neurologic Neurologic: Denies dizziness or syncope Psychiatric Psychiatric: Denies anxiety Endocrine Endocrinology: Denies excessive sweating or fatigue Hematologic/Lymphatic Hematologic/Lymphatic: Denies anemia Allergic/Immunologic Allergic/Immunologic: Denies seasonal rhinorrhea Physical Exam Const alert, oriented x3 and no apparent distress General Appearance: cooperative HEENT hearing grossly normal bilaterally Head and Scalp: atraumatic Eyes EOMs intact bilaterally Neck General: normal visual inspection Chest inspection of chest normal and palpation of chest normal Resp normal respiratory effort Auscultation: clear to auscultation bilaterally Cardio regular rate, regular rhythm, S1 normal heart sound and S2 normal heart sound Jugular Venous Distention: JVD GI normal to inspection, nondistended, normoactive bowel sounds Extremity normal capillary refill and no pedal edema Peripheral Pulses: Yes pulses 2+ throughout and femoral pulses present Skin no rashes or lesions noted Neuro oriented x3 and CN's II-XII intact bilaterally Psych Appearance: grossly normal and appropriate Risk Stratification Risk Stratification Applicable: Yes Age >/= 65: Yes >/= 3 CAD Risk Factors (HTN, HLD, DM, family hx of CAD, or current smoker): No Aspirin Use in the Past 7 Days: Yes Severe Angina (>/= episodes in 24 hours): No EKG ST Changes >/= 0.5mm: No Positive Cardiac Marker: Yes AVE Risk Stratification Score: 3 AVE % Risk: 13% Risk Objective Data Vital Signs: Vital Signs Temp Pulse Resp BP Pulse Ox O2 Del Method 97.9 F 79 16 143/72 H 97 Room Air 10/26/23 03:00 10/26/23 03:00 10/26/23 03:00 10/26/23 03:00 10/26/23 03:00 10/26/23 03:00 Oxygen Delivery Method Room Air Weight: 189 lb 9.561 oz Body Mass Index (BMI) 28.0 Intake & Output: Intake and Output for Last 24 Hours 10/24/23 10/25/23 10/26/23 23:59 23:59 23:59 Intake Total 65 / 65 Balance 65 / 65 Lab / Micro Data 10/26/23 03:32 10/26/23 03:32 Labs: Laboratory Results - last 24 hr 10/25/23 19:33: WBC 7.9, RBC 6.10, Hgb 16.5, Hct 48.1, MCV 78.9 L, MCH 27.0, MCHC 34.3, RDW Std Deviation 35.9, RDW Coeff of Josiah 12.7, Plt Count 254, MPV 11.5, Immature Gran % (Auto) 0.400, Neut % (Auto) 79.6 H, Lymph % (Auto) 18.8 L, [place] % (Auto) 0.9, Eos % (Auto) 0.0, Baso % (Auto) 0.3, Absolute Neuts (auto) 6.3, Absolute Lymphs (auto) 1.49, Nucleated RBC % 0, PT 14.4, INR 1.1, APTT 32.3, Sodium 134 L, Potassium 4.5, Chloride 104, Carbon Dioxide 22.0, Anion Gap 8, BUN 22 H, Creatinine 1.64 H, Estim Creat Clear Calc 44.83, Est GFR (MDRD) Af Amer 53 L, Est GFR (MDRD) Non-Af 44 L, BUN/Creatinine Ratio 13.4, Glucose 227 H, Calcium 9.8, Troponin I High Sens 13 10/25/23 22:20: Troponin I High Sens 260 H* 10/26/23 03:32: WBC 12.3 H, RBC 5.59, Hgb 15.0, Hct 43.8, MCV 78.4 L, MCH 26.8 L , MCHC 34.2, RDW Std Deviation 35.7, RDW Coeff of Josiah 12.6, Plt Count 220, MPV 10.1, Immature Gran % (Auto) 0.600, Neut % (Auto) 79.8 H, Lymph % (Auto) 17.0 L, [place] % (Auto) 2.4, Eos % (Auto) 0.0, Baso % (Auto) 0.2, Absolute Neuts (auto) 9.8 H, Absolute Lymphs (auto) 2.10, Nucleated RBC % 0, Sodium 136, Potassium 3.9, Chloride 104, Carbon Dioxide 23.0, Anion Gap 9, BUN 25 H, Creatinine 1.45 H , Estim Creat Clear Calc 50.77, Est GFR (MDRD) Af Amer 62, Est GFR (MDRD) Non-Af 51 L, BUN/Creatinine Ratio 17.2, Glucose 158 H, Calcium 9.5, Troponin I High Sens 2224 H*, Triglycerides 106, Cholesterol 159, LDL Cholesterol 104, VLDL Cholesterol 21, HDL Cholesterol 34 L, TSH 0.02 L 10/26/23 06:01: APTT 72.7 H Cardiology Labs/Tests 10/25/23 19:33: WBC 7.9, RBC 6.10, Hgb 16.5, Hct 48.1, MCV 78.9 L, MCH 27.0, MCHC 34.3, Plt Count 254, MPV 11.5, Immature Gran % (Auto) 0.400, Neut % (Auto) 79.6 H, Lymph % (Auto) 18.8 L, [place] % (Auto) 0.9, Eos % (Auto) 0.0, Baso % (Auto) 0.3, Absolute Neuts (auto) 6.3, Nucleated RBC % 0, PT 14.4, INR 1.1, APTT 32.3, Sodium 134 L, Potassium 4.5, Chloride 104, Carbon Dioxide 22.0, Anion Gap 8, BUN 22 H, Creatinine 1.64 H, Est GFR (MDRD) Af Amer 53 L, Est GFR (MDRD) Non- Af 44 L, BUN/Creatinine Ratio 13.4, Glucose 227 H, Calcium 9.8 10/26/23 03:32: WBC 12.3 H, RBC 5.59, Hgb 15.0, Hct 43.8, MCV 78.4 L, MCH 26.8 L , MCHC 34.2, Plt Count 220, MPV 10.1, Immature Gran % (Auto) 0.600, Neut % (Auto) 79.8 H, Lymph % (Auto) 17.0 L, [place] % (Auto) 2.4, Eos % (Auto) 0.0, Baso % (Auto) 0.2, Absolute Neuts (auto) 9.8 H, Nucleated RBC % 0, Sodium 136, Potassium 3.9, Chloride 104, Carbon Dioxide 23.0, Anion Gap 9, BUN 25 H, Creatinine 1.45 H, Est GFR (MDRD) Af Amer 62, Est GFR (MDRD) Non-Af 51 L, BUN/Creatinine Ratio 17.2, Glucose 158 H, Calcium 9.5, Triglycerides 106, Cholesterol 159, LDL Cholesterol 104, VLDL Cholesterol 21, HDL Cholesterol 34 L 10/26/23 06:01: APTT 72.7 H Rhythm: EKG: Normal sinus rhythm with lateral T wave changes. ECHO: Stress Test: Cardiac Cath: PCI: CT Surgery: Holter monitor: EPS: PPM: CXR: Chest CT Scan: Radiography Diagnostic Testing: Radiology Impression Chest X-Ray 10/25/23 20:10 IMPRESSION: Degenerative changes, as described above. No demonstrated acute cardiopulmonary process. Electronically Signed: Landon Chakraborty MD at 20:34 EDT ,
[2023-10-26] MEDS: amLODIPine 10 MG Tablet PO (07:30)
[2023-10-26] MEDS: Propranolol LA 80 MG Capsule 160 MG PO (07:30)
[2023-10-26] MEDS: Aspirin 81 MG TAB.CHEW PO (07:30)
[2023-10-26] MEDS: 0.9% Normal Saline (1000mL) 1,000 ML 15 ML IV (07:38)
--- NOTE | 2023-10-26 09:31 | CASEMGMT ---
KWASI MOORE NOTE: Fax received from [place] stating care @ [facility] has been approved for payment. Referral #: [id number]. Call placed to Stella/ROSE MARIE and she was made aware. Copy faxed to @ [phone]. Rajesh BERMAN RN, CM
--- NOTE | 2023-10-26 10:24 | CASEMGMT ---
Addendum entered by Dave Liu 10/26/23 15:21: 1430: KWASI MOORE placed call to TERESA Rubio @ [facility]. Ramiro states there is no bed available currently. He states pt is not service connected and states re: travel benefits that he is [id number] approved which should cover for cost of travel to [facility]. Ramiro states once a bed becomes available he will still need to obtain approval for pt to transfer to [facility] and if approved, he will set up transfer for pt. He states [facility] Pt Consent to Transfer form is not required at this time. Per Ramiro, if pt/ would choose to have pt transferred to another tertiary hospital other than [facility], [place] will not pay for a CABG at another hospital and he does not think they would cover for transport either. KWASI MOORE to room to notify pt and of all of the above. Questions answered and they voice understanding. Dr Garcia made aware there is not bed available @ [facility] currently and they will call [facility] or CM when one does become available. Noted in pt's chart that MCR A has been verified by registration. Pt and both state pt only has [facility] benefits and state that he does not have MCR and adamant that he has never had MCR. KWASI MOORE placed call to registration and spoke w/Stella. She verified pt has MCR A only. She printed off information from [employer] w/pt's MCR ID # and provided to this RN TERESA. KWASI MOORE to room and gave this info to pt and and also provided them w/MCR's phone # to contact, if needed. They voice appreciation. Original Note: KWASI MOORE NOTE: Call received from Loree in [employer], stating pt needs to transfer to tertiary facility and code clerk would like to transfer pt to [facility]. Call placed to [place] transfer center who requested clinicals be faxed to them @ [phone]. She states a CM will be assigned to pt and this RN CM should receive call back from CM in 5-10 min. Clinicals faxed and confirmation received that fax was successfully delivered. Call received from Loree in [employer] [employer], who states pt's wishes for pt to transfer to [facility]. Call placed back to [place] [facility] [place] @ [phone] and spoke to TERESA who has been assigned to pt's case, Ramiro, ext [phone]. He was made aware clinicals have been faxed. He states once clinicals are reviewed, he will send to the [place] code clerk to review. He states he will call this RN CM back once determination of acceptance has been made and to update re: if a bed is available @ [facility]. Dr Garcia made aware of above. Rajesh BERMAN RN CM
[2023-10-26] MEDS: Levothyroxine 100 MCG Tablet PO (10:52)
[2023-10-26] MEDS: hydroCHLOROthiazide 25 MG Tablet PO (10:53)
[2023-10-26] MEDS: Pantoprazole Sodium 40 MG Tablet PO (10:53)
[2023-10-26] MEDS: Allopurinol 100 MG Tablet 200 MG PO (10:53)
[2023-10-26] MEDS: Cholecalciferol (Vit D3) 125 MCG CAPSULE (5,000 UNITS) PO (10:53)
--- NOTE | 2023-10-26 12:54 | CHAPLAIN ---
Type of Pastoral Visit _x__ Initial Visit ___ Follow-up Visit ___ On-call Visit ___ General Patient Visit ___ Spiritual Assessment ___ Family Conference ___ Bereavement ___ Rapid Response ___ Code Blue ___ Other (describe below) Pastoral Care Referral From _x_ Patient _x__ Family ___ Nurse ___ Physician ___ Retanner ___ Capacity Manager ___ Other (describe below) Sacrament/Intervention _x__ Active listening ___ Anointing ___ Hoahaoism ___ Bereavement ___ Communion ___ Cindy exploration ___ ___ Life review _x__ Prayer ___ Reconciliation ___ Sacrament of Sick _x__ Supportive presence ___ Wedding ___ Other (describe below) Pastoral Comments patient and spouse are in the room and waiting for news about a transfer to another facility for a heart surgery; discussion about how the events that interrupt our lives impact us; pt speaks of hopes and wants to live to watch grandson grow up; pt is of the Quaker cindy but has been out of the cheondoism for a few years; spouse stresses that we still believe in God and know that he is with us; offer of prayer welcomed; casual conversation for assurance of care and support given
--- NOTE | 2023-10-26 15:11 | DS.PCM_ITS ---
Providers Date of Admission: 10/26/23 Primary Care Physician: [facility] Consultations 10/26/23 02:57 Consult: Cardiology Routine Consulting Provider: Torsten Khanna Reason for Consult: NSTEMI EMERGENT Consult: No MD Notified: Yes Date Notified: 10/26/23 Time Notified: 01:50 Method of Notification: ED Physician Initiated Reason For Visit: NSTEMI Diagnosis Discharge Diagnosis (1) Chest pain: Status: Acute Code(s): R07.9 - Chest pain, unspecified Plan Non-STEMI * home aspirin. Continue statin. * per cardiology,l high-grade LAD stenosis. Recommending transfer for evaluation for CABG. * Transfer to [place] initiated. * Trops went from 260 to 2224 * Echo shows an EF of 50% * Restart anticoagulation with enoxaparin. Chronic conditions: * Hypothyroidism? Stable, will obtain a TSH? Continue with Synthroid * Gout? Stable? Continue with his home allopurinol * GERD? Stable? Continue with PPI * History of psoriatic arthritis? It appears that he used to be on adalimumab? Continue with outpatient follow-up and management * HTN: stable. continue amlodipine, HCTZ, propranolol. DVT: not indicated as already anticoagulated. Medications at Discharge Home Medications adalimumab 40 mg/0.4 mL subcutaneous syringe kit 40 mg subcut QWEEK arthritis 09/29/20 allopurinol 100 mg tablet 200 mg PO DAILYCM 09/29/20 amlodipine 10 mg tablet 10 mg PO DAILY 09/29/20 propranolol 160 mg capsule,24 hr,extended release 160 mg PO DAILY 09/29/20 acetaminophen 650 mg PO Q6H PRN PRN pain/fever 10/25/23 aspirin 81 mg capsule 81 mg PO DAILY 10/25/23 cholecalciferol (vitamin D3) 125 mcg (5,000 unit) tablet (Vitamin D3) 125 mcg PO DAILY 10/25/23 esomeprazole magnesium 40 mg capsule,delayed release 40 mg PO DAILY 10/25/23 hydrochlorothiazide 25 mg tablet 25 mg PO DAILY 10/25/23 levothyroxine 100 mcg tablet (Euthyrox) 100 mcg PO DAILY 10/25/23 Weight / BMI Weight Weight: 86 kg Body Mass Index (BMI) 28.0 ABG / Lab / Microbiology Data 10/26/23 03:32 10/26/23 03:32 Laboratory: Laboratory Results - last 24 hr 10/25/23 19:33: WBC 7.9, RBC 6.10, Hgb 16.5, Hct 48.1, MCV 78.9 L, MCH 27.0, MCHC 34.3, RDW Std Deviation 35.9, RDW Coeff of Josiah 12.7, Plt Count 254, MPV 11.5, Immature Gran % (Auto) 0.400, Neut % (Auto) 79.6 H, Lymph % (Auto) 18.8 L, [place] % (Auto) 0.9, Eos % (Auto) 0.0, Baso % (Auto) 0.3, Absolute Neuts (auto) 6.3, Absolute Lymphs (auto) 1.49, Nucleated RBC % 0, PT 14.4, INR 1.1, APTT 32.3, Sodium 134 L, Potassium 4.5, Chloride 104, Carbon Dioxide 22.0, Anion Gap 8, BUN 22 H, Creatinine 1.64 H, Estim Creat Clear Calc 44.83, Est GFR (MDRD) Af Amer 53 L, Est GFR (MDRD) Non-Af 44 L, BUN/Creatinine Ratio 13.4, Glucose 227 H, Calcium 9.8, Troponin I High Sens 13 10/25/23 22:20: Troponin I High Sens 260 H* 10/26/23 03:32: WBC 12.3 H, RBC 5.59, Hgb 15.0, Hct 43.8, MCV 78.4 L, MCH 26.8 L , MCHC 34.2, RDW Std Deviation 35.7, RDW Coeff of Josiah 12.6, Plt Count 220, MPV 10.1, Immature Gran % (Auto) 0.600, Neut % (Auto) 79.8 H, Lymph % (Auto) 17.0 L, [place] % (Auto) 2.4, Eos % (Auto) 0.0, Baso % (Auto) 0.2, Absolute Neuts (auto) 9.8 H, Absolute Lymphs (auto) 2.10, Nucleated RBC % 0, Sodium 136, Potassium 3.9, Chloride 104, Carbon Dioxide 23.0, Anion Gap 9, BUN 25 H, Creatinine 1.45 H , Estim Creat Clear Calc 50.77, Est GFR (MDRD) Af Amer 62, Est GFR (MDRD) Non-Af 51 L, BUN/Creatinine Ratio 17.2, Glucose 158 H, Calcium 9.5, Troponin I High Sens 2224 H*, Triglycerides 106, Cholesterol 159, LDL Cholesterol 104, VLDL Cholesterol 21, HDL Cholesterol 34 L, TSH 0.02 L 10/26/23 06:01: APTT 72.7 H Radiography Diagnostic Testing: Radiology Impression Chest X-Ray 10/25/23 20:10 IMPRESSION: Degenerative changes, as described above. No demonstrated acute cardiopulmonary process. Electronically Signed: Landon Chakraborty MD at 20:34 EDT , Echocardiogram 10/26/23 05:55 Interpretation Summary Normal LV size. Left ventricular systolic function is lower limits of normal. The estimated ejection fraction is 50 %. Stage 1 diastolic dysfunction. Mild segmental systolic dysfunction (see wall motion). Mild concentric left ventricular hypertrophy. The left atrium is mildly enlarged. Contrast injection was performed. Ordering Physician: Abdirizak Jason Referring Physician: [facility] Performed By: Lisa Kim RDCS Meaningful Use Info Meaningful Use Diagnoses (Choose all that apply): AMI AMI/Post PCI/Angioplasty Aspirin given w/in 24hrs of arrival?: Yes ASA at discharge?: Yes Antiplatelet Therapy at Discharge:: No Reason Antiplatelet Therapy not ordered:: eval for CABG Statins at discharge?: Yes Rios/ARB at discharge?: No Reason Rios/ARB not ordered:: Allergy Beta Mikey at discharge?: No Reason Beta Mikey not ordered:: Hypotension Done w/ Acute OK measure.: Yes Documented LVEF (%): 50 Discharge Plan Admission Admit Date/Time: 10/26/23 01:36 Primary Reason for Your Visit: NSTEMI Attending Provider: Jopperi,Matthew Primary Care Provider: [facility] Consulting Providers: Torsten Khanna; Abdirizak Jason Instructions Patient Instructions: ED Chest Pain, Uncertain Cause, ED GERD (Adult) Additional Instructions / Restrictions: Please follow-up with your PCP in the next 5 to 7 days. Return for any w orsening of your symptoms. Discharge Orders/Prescriptions Prescriptions: No Action propranolol 160 MG capsule,extended release 24 hr 160 mg PO DAILY allopurinol 100 MG tablet 200 mg PO DAILYCM amlodipine 10 MG tablet 10 mg PO DAILY adalimumab 40 MG/0.4 ML syringe kit 40 mg subcut QWEEK Patient Comments: wednesdays levothyroxine [Euthyrox] 100 mcg tablet 100 mcg PO DAILY esomeprazole magnesium 40 mg capsule,delayed release(DR/EC) 40 mg PO DAILY hydrochlorothiazide 25 mg tablet 25 mg PO DAILY aspirin 81 mg capsule 81 mg PO DAILY cholecalciferol (vitamin D3) [Vitamin D3] 125 mcg (5,000 unit) tablet 125 mcg PO DAILY acetaminophen [Tylenol] 650 mg PO Q6H PRN PRN (Reason: pain/fever) Referrals / Follow Up: [facility] [Primary Care Provider] - Disposition Disposition (needs filled in before D/C Order can be placed): Acute [facility]
--- NOTE | 2023-10-26 17:05 | CL.D_ITS ---
Patient Name: MARK ZAPATA Study Date: 10/26/2023 Performing: Torsten Khanna MD Ht: 69 inches 175.26 cm : 1950 Wt: 189.8 lbs 86 kg Age: 73 Gender: male BSA: 2.02 PROCEDURE(S) PERFORMED [id number])[facility] AND INDICATIONS Indications: Suspected CAD Heart Failure: None Stress/Imaging Stress/Image Study Performed: No CAD Presentations: Non-STEMI. Symptom onset Date/Time: 10/26/23 Time Not Available CONCLUSIONS Severe ostial LAD stenosis with moderate calcification noted in the midsegment, moderate disease noted of her third large obtuse marginal branch and mild disease noted of the right coronary artery. RECOMMENDATIONS Surgery consult for coronary revascularization DESCRIPTION OF PROCEDURE The patient arrived to the procedure lab. The risks and benefits of the procedure as well as a full description of our services here and current unavailability of surgical backup were fully explained to the patient and/or their significant other prior to the catheterization. The Timeout was completed, verifying the correct patient and procedure. The patient's procedural site was prepped and draped in the usual fashion. Local anesthetic was given subcutaneously to right radial region with Lidocaine 2%. Using a modified Seldinger technique, arterial access was obtained via the right radial artery, a 6Fr sheath was inserted. Right Coronary Artery selective angiography was then performed in multiple views using a 5 Fr. 4.0 Meshoppen catheter. Left Coronary Artery selective angiography was performed in multiple views using a 5 Fr. 4.0 Meshoppen catheter. Left Ventriculography was performed in ZHENG projection using a 5 Fr. Pigtail catheter. LV to AO pullback pressures were then recorded.The arterial sheath was pulled and a TR Band was applied for hemostasis w/10ml aier CORONARY ANGIOGRAPHY DOMINANCE: Right Dominant LEFT HEART ASSESSMENT Left Ventricular Ejection Fraction: by LV Gram 50 % Anterior Hypokinesis - Mild Depressed Left Ventricular systolic function LEFT MAIN: Moderate calcification, 40 ostial stenosis LEFT ANTERIOR DESCENDING ARTERY: OSTIAL LAD: High grade ostial stenosis with calcification and mild distal. CIRCUMFLEX ARTERY: Nondominant vessel with first and second obtuse marginal branches with no significant disease and a third large obtuse marginal branch with a 40 to 60% stenotic lesion proximally. AV groove branch and posterior descending artery with no significant stenosis present. RIGHT CORONARY ARTERY: Mild luminal irregularities less than 30% COMPLICATIONS No Complications PROCEDURE MEDICATIONS Versed 1 mg IV Fentanyl 50 mcg IV Oxygen: 2 L/min via nasal cannula Benadryl 50 mg IV @ 10/26/2023 09:00:19 Heparin given IA 10/26/2023 09:21:23 Solu-medrol 125 mg IV 10/26/2023 09:00:29 SUMMARY OF HEMODYNAMIC DATA Time AIR REST ECG 08:59:38 Art 159/63 (92) 09:12:54 AO 153/37 (60) SA 09:24:12 LV 125/16, 31 09:54:27 LV 123/16, 33 09:54:35 LV 126/26, 40 09:55:00 LV 131/20, 38 09:55:08 LVp 131/18, 38 09:55:13 AOp 0/0 (30) 09:55:20 Signed By Torsten Khanna MD On 10/26/2023 17:04:56 Torsten Khanna MD
[2023-10-26] MEDS: Enoxaparin 100 MG/ML Syringe 90 MG SC (18:05)
[2023-10-26] MEDS: Atorvastatin Calcium 40 MG Tablet PO (20:03)
[2023-10-27] VITALS (8 sets, daily range): BP systolic 121–148; BP diastolic 58–75; PULSE 60–80; RESP 14–20; TEMP 36.1–37.1; O2SAT 96–98
[2023-10-27] MEDS: Acetaminophen 325 MG Tablet 650 MG PO ×2 (03:29→21:19)
[2023-10-27] MEDS: Enoxaparin 100 MG/ML Syringe 90 MG SC ×2 (06:24→17:36)
[2023-10-27] MEDS: Levothyroxine 100 MCG Tablet PO (06:24)
--- NOTE | 2023-10-27 06:59 | PN.HOSP_ITS ---
Reason for Visit Reason for Visit: Diagnoses Essential (primary) hypertension (10/26/23) Non-ST elevation (NSTEMI) myocardial infarction (10/26/23) Chest pain, unspecified (10/26/23) Objective Data Objective Data Vital Signs: Vital Signs Temp Pulse Resp BP Pulse Ox O2 Del Method 36.2 C L 62 17 123/58 H 96 Room Air 10/27/23 05:00 10/27/23 05:00 10/27/23 05:00 10/27/23 05:00 10/27/23 05:00 10/27/23 05:00 Oxygen Delivery Method Room Air Weight: 86 kg Body Mass Index (BMI) 28.0 Intake & Output: Intake and Output for Last 24 Hours 10/25/23 10/26/23 10/27/23 23:59 23:59 23:59 Intake Total 69.05 / 69.05 Output Total 400 / 400 Balance -330.95 / -330.95 Lab / Micro Data 10/26/23 03:32 10/26/23 03:32 Radiography Diagnostic Testing: Radiology Impression Echocardiogram 10/26/23 05:55 Interpretation Summary Normal LV size. Left ventricular systolic function is lower limits of normal. The estimated ejection fraction is 50 %. Stage 1 diastolic dysfunction. Mild segmental systolic dysfunction (see wall motion). Mild concentric left ventricular hypertrophy. The left atrium is mildly enlarged. Contrast injection was performed. Ordering Physician: Abdirizak Jason Referring Physician: [facility] Performed By: Lisa Kim RDCS Assessment & Plan Assessment/Plan (1) Chest pain: PLAN: Plan Non-STEMI * home aspirin. Continue statin. * per cardiology,l high-grade LAD stenosis. Recommending transfer for evaluation for CABG. * Transfer to [place] initiated. * Trops went from 260 to 2224 * Echo shows an EF of 50% * Restart anticoagulation with enoxaparin. Chronic conditions: * Hypothyroidism? Stable, will obtain a TSH? Continue with Synthroid * Gout? Stable? Continue with his home allopurinol * GERD? Stable? Continue with PPI * History of psoriatic arthritis? It appears that he used to be on adalimumab? Continue with outpatient follow-up and management * HTN: stable. continue amlodipine, HCTZ, propranolol. DVT: not indicated as already anticoagulated.
--- NOTE | 2023-10-27 06:59 | PCM.PN.HOSP ---
Reason for Visit Reason for Visit: Diagnoses Essential (primary) hypertension (10/26/23) Non-ST elevation (NSTEMI) myocardial infarction (10/26/23) Chest pain, unspecified (10/26/23) Subjective Subjective Feeling well. No events overnight. Objective Data Objective Data Vital Signs: Vital Signs Temp Pulse Resp BP Pulse Ox O2 Del Method 36.2 C L 62 17 123/58 H 96 Room Air 10/27/23 05:00 10/27/23 05:00 10/27/23 05:00 10/27/23 05:00 10/27/23 05:00 10/27/23 05:00 Oxygen Delivery Method Room Air Weight: 86 kg Body Mass Index (BMI) 28.0 Intake & Output: Intake and Output for Last 24 Hours 10/25/23 10/26/23 10/27/23 23:59 23:59 23:59 Intake Total 69.05 / 69.05 Output Total 400 / 400 Balance -330.95 / -330.95 Lab / Micro Data 10/26/23 03:32 10/26/23 03:32 Radiography Diagnostic Testing: Radiology Impression Echocardiogram 10/26/23 05:55 Interpretation Summary Normal LV size. Left ventricular systolic function is lower limits of normal. The estimated ejection fraction is 50 %. Stage 1 diastolic dysfunction. Mild segmental systolic dysfunction (see wall motion). Mild concentric left ventricular hypertrophy. The left atrium is mildly enlarged. Contrast injection was performed. Ordering Physician: Abdirizak Jason Referring Physician: [facility] Performed By: Lisa Kim RDCS Physical Exam Const alert and no apparent distress Constitutional Narrative: standing up in room. no respiratory distress. no conversational dyspnea. Neuro moves all extremities Sensorium / Orientation: awake and alert Speech: speech normal Psych affect normal Assessment & Plan Assessment/Plan (1) Chest pain: PLAN: Plan Non-STEMI home aspirin. Continue statin. per cardiology,l high-grade LAD stenosis. Recommending transfer for evaluation for CABG. [facility] [place] [facility]. Trops went from 260 to 2224 Echo shows an EF of 50% Restart anticoagulation with enoxaparin. Chronic conditions: Hypothyroidism? Stable, will obtain a TSH? Continue with Synthroid Gout? Stable? Continue with his home allopurinol GERD? Stable? Continue with PPI History of psoriatic arthritis? It appears that he used to be on adalimumab? Continue with outpatient follow-up and management HTN: stable. continue amlodipine, HCTZ, propranolol. DVT: not indicated as already anticoagulated. Charges/Coding Visit Charges Inpatient E&M: 58286 Subs Hosp L1
[2023-10-27] MEDS: amLODIPine 10 MG Tablet PO (08:41)
[2023-10-27] MEDS: Cholecalciferol (Vit D3) 125 MCG CAPSULE (5,000 UNITS) PO (08:41)
[2023-10-27] MEDS: Aspirin 81 MG TAB.CHEW PO (08:41)
[2023-10-27] MEDS: Pantoprazole Sodium 40 MG Tablet PO (08:41)
[2023-10-27] MEDS: Allopurinol 100 MG Tablet 200 MG PO (08:41)
[2023-10-27] MEDS: hydroCHLOROthiazide 25 MG Tablet PO (08:41)
[2023-10-27] MEDS: Propranolol LA 80 MG Capsule 160 MG PO (08:42)
--- NOTE | 2023-10-27 09:15 | PCM.PN.CARD ---
Subjective Subjective Patient seen and evaluated. Doing well today no chest pain. Objective Data Vital Signs: Vital Signs Temp Pulse Resp BP Pulse Ox O2 Del Method 98.8 F 80 18 147/75 H 96 Room Air 10/27/23 08:00 10/27/23 08:00 10/27/23 08:00 10/27/23 08:00 10/27/23 08:00 10/27/23 08:00 Oxygen Delivery Method Room Air Weight: 189 lb 9.561 oz Body Mass Index (BMI) 28.0 Intake & Output: Intake and Output for Last 24 Hours 10/25/23 10/26/23 10/27/23 23:59 23:59 23:59 Intake Total 69.05 / 69.05 Output Total 400 / 400 Balance -330.95 / -330.95 Lab / Micro Data 10/26/23 03:32 10/26/23 03:32 Cardiology Labs/Tests Rhythm: EKG: ECHO: Stress Test: Cardiac Cath: PCI: CT Surgery: Holter monitor: EPS: PPM: CXR: Chest CT Scan: Radiography Diagnostic Testing: Radiology Impression Echocardiogram 10/26/23 05:55 Interpretation Summary Normal LV size. Left ventricular systolic function is lower limits of normal. The estimated ejection fraction is 50 %. Stage 1 diastolic dysfunction. Mild segmental systolic dysfunction (see wall motion). Mild concentric left ventricular hypertrophy. The left atrium is mildly enlarged. Contrast injection was performed. Ordering Physician: Abdirizak Jason Referring Physician: [facility] Performed By: Lisa Kim RDCS Physical Exam Const alert, oriented x3 and no apparent distress General Appearance: cooperative HEENT hearing grossly normal bilaterally Head and Scalp: atraumatic Eyes EOMs intact bilaterally Neck General: normal visual inspection Chest inspection of chest normal and palpation of chest normal Resp normal respiratory effort Auscultation: clear to auscultation bilaterally Cardio regular rate, regular rhythm, S1 normal heart sound and S2 normal heart sound Jugular Venous Distention: JVD GI normal to inspection, nondistended, normoactive bowel sounds Extremity normal capillary refill and no pedal edema Peripheral Pulses: Yes pulses 2+ throughout and femoral pulses present Skin no rashes or lesions noted Neuro oriented x3 and CN's II-XII intact bilaterally Psych Appearance: grossly normal and appropriate Assessment & Plan Assessment/Plan (1) NSTEMI (non-ST elevated myocardial infarction): PLAN: He does present with chest discomfort and abnormal cardiac enzymes suggestive of a non-ST elevation myocardial infarction. His EKG changes are concerning as well as his cardiac enzymes. My recommendation will be to proceed with a left heart catheterization and an echocardiogram he should be hydrated before. His echocardiogram demonstrated apical hypokinesis. See full result. His cardiac catheterization demonstrated a distal left main high-grade and ostial 99% left anterior descending artery stenotic lesion. The left anterior descending artery itself had mild disease. The circumflex artery was nondominant with mild disease. The right coronary artery was dominant with mild nonobstructive disease. Ejection fraction was estimated to be approximately 50%. Based on the above angiographic findings the patient should be transferred to a tertiary care facility for coronary bypass surgery. He is currently awaiting a bed at the [facility]. (2) Hypertension: PLAN: Will obtain an echocardiogram to look at wall thickness. In the meantime he will continue with his amlodipine Will suggest switching his Inderal to Toprol XL. Further recommendations will be made based on the results of the above tests.
--- NOTE | 2023-10-27 09:19 | CASEMGMT ---
Addendum entered by Dave Liu 10/27/23 16:32: KWASI MOORE spoke w/TERESA Rubio @ [place] transfer garber. Pt has been accepted and they are still awaiting bed. Ramiro states he is hopeful a bed will be available tomorrow. Dr Garcia made aware. Updated clinicals faxed to [facility] transfer [facility] at this time. Original Note: KWASI MOORE NOTE: Call received from TERESA Rubio @ [facility]. He states still no bed available and acceptance is still pending. Dr Garcia and pt/family made aware. Per Ramiro, once bed is available and pt is accepted, will need the following: Copy of Cath burnt on CD (this has been done and is on pt's chart) sent w/pt. Copy of pt's chart sent w/pt COVID PCR (unless pt transfers to their ICU) Ramiro states he will make arrangements for transport. Updated vs's faxed to [place] transfer garber at this time per Ramiro's request and he states no further info needed at this time. Rajesh BERMAN RN, CM
[2023-10-27] MEDS: Atorvastatin Calcium 40 MG Tablet PO (21:19)
[2023-10-27] MEDS: 0.9% Saline Lock 10 ML Syringe IV (21:19)
[2023-10-27] MEDS: Polyethylene Glycol 3350 17 GM PACKET PO (22:39)
[2023-10-28 03:06] VITALS: BP 150/66; PULSE 61; RESP 17; TEMP 36.4; O2SAT 99
[2023-10-28 03:07] VITALS: BP 150/66; PULSE 61; RESP 17; TEMP 36.4; O2SAT 99
[2023-10-28] MEDS: Acetaminophen 325 MG Tablet 650 MG PO ×2 (03:41→10:50)
[2023-10-28] MEDS: Enoxaparin 100 MG/ML Syringe 90 MG SC (05:55)
[2023-10-28] MEDS: Levothyroxine 100 MCG Tablet PO (05:55)
--- NOTE | 2023-10-28 07:57 | PN.HOSP_ITS ---
Reason for Visit Reason for Visit: Diagnoses Essential (primary) hypertension (10/26/23) Non-ST elevation (NSTEMI) myocardial infarction (10/26/23) Chest pain, unspecified (10/26/23) Subjective Subjective Some chest pressure. Resolved after nitro topical. Objective Data Objective Data Vital Signs: Vital Signs Temp Pulse Resp BP Pulse Ox O2 Del Method 36.4 C L 61 17 150/66 H 99 Room Air 10/28/23 03:07 10/28/23 03:07 10/28/23 03:07 10/28/23 03:07 10/28/23 03:07 10/28/23 03:07 Oxygen Delivery Method Room Air Weight: 86 kg Body Mass Index (BMI) 28.0 Intake & Output: Intake and Output for Last 24 Hours 10/26/23 10/27/23 10/28/23 23:59 23:59 23:59 Intake Total 69.05 / 69.05 1481.25 / 1481.25 Output Total 400 / 400 Balance -330.95 / -330.95 1481.25 / 1481.25 Lab / Micro Data 10/26/23 03:32 10/26/23 03:32 Physical Exam Const alert and no apparent distress HEENT head/scalp atraumatic and moist oral mucous membranes Neuro Sensorium / Orientation: awake and alert Assessment & Plan Assessment/Plan (1) Chest pain: PLAN: Plan Non-STEMI * home aspirin. Continue statin. * per cardiology,l high-grade LAD stenosis. Recommending transfer for evaluation for CABG. Awaiting on acceptance by [place]. * Transfer to [place] initiated. * Trops went from 260 to 2224 * Echo shows an EF of 50% * Restart anticoagulation with enoxaparin. Chronic conditions: * Hypothyroidism? Stable, will obtain a TSH? Continue with Synthroid * Gout? Stable? Continue with his home allopurinol * GERD? Stable? Continue with PPI * History of psoriatic arthritis? It appears that he used to be on adalimumab? Continue with outpatient follow-up and management * HTN: stable. continue amlodipine, HCTZ, propranolol. DVT: not indicated as already anticoagulated. Patient be transferred to [facility] today in stable condition.
[2023-10-28 08:09] VITALS: BP 143/69; PULSE 58; RESP 14; TEMP 36.9; O2SAT 99
--- NOTE | 2023-10-28 08:25 | NURSING ---
I spoke to Ramiro at the [facility] he stated pt is on the wait list however the do not have a bed at this time.
--- NOTE | 2023-10-28 08:31 | EKG12_ITS ---
Test Reason : CP Blood Pressure : / mmHG Vent. Rate : 054 BPM Atrial Rate : 054 BPM P-R Int : 164 ms QRS Dur : 108 ms QT Int : 438 ms P-R-T Axes : 052 033 -01 degrees QTc Int : 415 ms Sinus bradycardia Nonspecific T wave abnormality Abnormal ECG When compared with ECG of 25-OCT-2023 23:47, Vent. rate has decreased BY 30 BPM Confirmed by MIGUE PARDO ([id number]), material expeditor KEI ANAYA ([id number]) on 11/01/2023 9:41:38 AM Referred By: FOX Confirmed By:MIGUE PARDO
[2023-10-28] MEDS: Polyethylene Glycol 3350 17 GM PACKET PO (09:42)
[2023-10-28] MEDS: Pantoprazole Sodium 40 MG Tablet PO (09:43)
[2023-10-28] MEDS: Aspirin 81 MG TAB.CHEW PO (09:43)
[2023-10-28] MEDS: amLODIPine 10 MG Tablet PO (09:43)
[2023-10-28] MEDS: hydroCHLOROthiazide 25 MG Tablet PO (09:44)
[2023-10-28] MEDS: Cholecalciferol (Vit D3) 125 MCG CAPSULE (5,000 UNITS) PO (09:44)
[2023-10-28] MEDS: Allopurinol 100 MG Tablet 200 MG PO (09:44)
--- NOTE | 2023-10-28 09:56 | CASEMGMT ---
KWASI MOORE updated by nursing that patient continues to have chest pressure and design lead was inquiring how soon patient would be transferred to [facility]. KWASI MOORE called Ramiro at [place] transfer center. Per Ramiro, patient will be admitted to SICU by accepting physician Dr. Garcia. Per Ramiro, patient will need stat Covid PCR for transfer, nursing updated. Most resent vitals provided. Ramiro also requesting disc of cardiovascular studies, disc on chart. KWASI MOORE updated nursing regard patient being transferred possible today. KWASI MOORE updated patient and family regarding transfer to [facility]. KWASI MOORE called Ramiro at [place] to update regarding Covid PCR draw.
[2023-10-28 10:46] VITALS: BP 143/69; PULSE 61
[2023-10-28] MEDS: Nitroglycerin Oint 1 INCH PACKET TD (10:46)
[2023-10-28] MEDS: Propranolol LA 80 MG Capsule 160 MG PO (10:48)
--- NOTE | 2023-10-28 11:30 | CASEMGMT ---
KWASI MOORE received Covid PCR results and called Ramiro at [place]. Covid results faxed to [place]. Ramiro called and provided transport time of 1330 and report number for nurse, patient will go to SICU and number is [phone] ext [phone]. KWASI MOORE udpated hospitalist and nurse. KWASI MOORE updated patient and family. Patient and family had no further questions or concerns.
--- NOTE | 2023-10-28 12:06 | DS.PCM_ITS ---
Providers Date of Admission: 10/26/23 Primary Care Physician: [facility] Consultations 10/26/23 02:57 Consult: Cardiology Routine Consulting Provider: Torsten Khanna Reason for Consult: NSTEMI EMERGENT Consult: No MD Notified: Yes Date Notified: 10/26/23 Time Notified: 01:50 Method of Notification: ED Physician Initiated Reason For Visit: NSTEMI Diagnosis Discharge Diagnosis (1) Chest pain: Status: Acute Code(s): R07.9 - Chest pain, unspecified Plan Non-STEMI * home aspirin. Continue statin. * per cardiology,l high-grade LAD stenosis. Recommending transfer for evaluation for CABG. Awaiting on acceptance by [place]. * Transfer to [place] initiated. * Trops went from 260 to [phone] * Echo shows an EF of 50% * Restart anticoagulation with enoxaparin. Chronic conditions: * Hypothyroidism? Stable, will obtain a TSH? Continue with Synthroid * Gout? Stable? Continue with his home allopurinol * GERD? Stable? Continue with PPI * History of psoriatic arthritis? It appears that he used to be on adalimumab? Continue with outpatient follow-up and management * HTN: stable. continue amlodipine, HCTZ, propranolol. DVT: not indicated as already anticoagulated. Patient be transferred to [facility] today in stable condition. Medications at Discharge Home Medications adalimumab 40 mg/0.4 mL subcutaneous syringe kit 40 mg subcut QWEEK arthritis 09/29/20 allopurinol 100 mg tablet 200 mg PO DAILYCM 09/29/20 amlodipine 10 mg tablet 10 mg PO DAILY 09/29/20 propranolol 160 mg capsule,24 hr,extended release 160 mg PO DAILY 09/29/20 acetaminophen 650 mg PO Q6H PRN PRN pain/fever 10/25/23 aspirin 81 mg capsule 81 mg PO DAILY 10/25/23 cholecalciferol (vitamin D3) 125 mcg (5,000 unit) tablet (Vitamin D3) 125 mcg PO DAILY 10/25/23 esomeprazole magnesium 40 mg capsule,delayed release 40 mg PO DAILY 10/25/23 hydrochlorothiazide 25 mg tablet 25 mg PO DAILY 10/25/23 levothyroxine 100 mcg tablet (Euthyrox) 100 mcg PO DAILY 10/25/23 Hospital Course Operations None Procedures 2-D Echocardiogram and Cardiac catheterization Weight / BMI Weight Weight: 86 kg Body Mass Index (BMI) 28.0 ABG / Lab / Microbiology Data 10/26/23 03:32 10/26/23 03:32 Microbiology: Microbiology 10/28/23 10:04 Mucosa - Nasopharyngeal Coronavirus COVID-19 PCR - Final D/C Instructions Discharge Diet: Low fat / Low cholesterol Meaningful Use Info Meaningful Use Meaningful Use Diagnoses (Choose all that apply): AMI AMI/Post PCI/Angioplasty Aspirin given w/in 24hrs of arrival?: Yes ASA at discharge?: Yes Antiplatelet Therapy at Discharge:: No Reason Antiplatelet Therapy not ordered:: plan for CABG Statins at discharge?: Yes Rios/ARB at discharge?: No Reason Rios/ARB not ordered:: Allergy Beta Mikey at discharge?: No Reason Beta Mikey not ordered:: Drug Interaction (bradycardia) Done w/ Acute WA measure.: Yes Documented LVEF (%): 50 Ischemic Stroke Statin Dosing Therapy Reference: STATIN DOSE THERAPY REFERENCE: * Patients > 75 years receive moderate or high dose statin therapy. * Patients 75 years or YOUNGER should receive HIGH intensity statin dose unless contraindicated. You will be required to document reason for non-treatment if statin daily dose does not meet guidelines. HIGH DOSE STATIN THERAPY DAILY Atorvastatin > than or = to 40 mg Rosuvastatin > than or = to 20 mg Amlodipine + Atorvastatin > than or = to 2.5/40 mg Ezetimibe + Simvastatin 10/80 mg Simvastatin 80mg Discharge Plan Admission Admit Date/Time: 10/26/23 01:36 Primary Reason for Your Visit: NSTEMI Attending Provider: Matthew Garcia Primary Care Provider: [facility],[place] Consulting Providers: Torsten Khanna; Abdirizak Jason Instructions Patient Instructions: ED Chest Pain, Uncertain Cause, ED GERD (Adult) Additional Instructions / Restrictions: Please follow-up with your PCP in the next 5 to 7 days. Return for any worsening of your symptoms. Discharge Orders/Prescriptions Prescriptions: No Action propranolol 160 MG capsule,extended release 24 hr 160 mg PO DAILY allopurinol 100 MG tablet 200 mg PO DAILYCM amlodipine 10 MG tablet 10 mg PO DAILY adalimumab 40 MG/0.4 ML syringe kit 40 mg subcut QWEEK Patient Comments: wednesdays levothyroxine [Euthyrox] 100 mcg tablet 100 mcg PO DAILY esomeprazole magnesium 40 mg capsule,delayed release(DR/EC) 40 mg PO DAILY hydrochlorothiazide 25 mg tablet 25 mg PO DAILY aspirin 81 mg capsule 81 mg PO DAILY cholecalciferol (vitamin D3) [Vitamin D3] 125 mcg (5,000 unit) tablet 125 mcg PO DAILY acetaminophen [Tylenol] 650 mg PO Q6H PRN PRN (Reason: pain/fever) Referrals [facility] - Disposition Disposition (needs filled in before D/C Order can be placed): Acute Care Hospital Charges/Coding Visit Charges Inpatient E&M: 98373 Disch Hosp
[2023-10-28 13:02] VITALS: BP 131/67; PULSE 58; RESP 14; TEMP 36.8; O2SAT 96
--- NOTE | 2023-10-28 13:19 | NURSING ---
report called to amira pratt RN [place] [phone]
== END 2023-10-28 14:08 | disposition short-term general hospital (02) | DRG 282 ==
LOC: ED 22:13 → ICU 10-26 02:11 → PCU 10-27 18:36
PROVIDERS: Physician Assistant; Admitting Provider Family Medicine; Emergency Provider Student in an Organized Health Care Education/Training Program
DX: I21.4 Non-ST elevation (NSTEMI) myocardial infarction (principal); E03.9 Hypothyroidism, unspecified; I10 Essential (primary) hypertension; K21.9 Gastro-esophageal reflux disease without esophagitis; M1A.9XX0 Chronic gout, unspecified, without tophus (tophi); I25.10 Atherosclerotic heart disease of native coronary artery without angina pectoris; Z79.82 Long term (current) use of aspirin; Z79.899 Other long term (current) drug therapy; Z87.39 Personal history of other diseases of the musculoskeletal system and connective tissue; Z87.891 Personal history of nicotine dependence
CPT/HCPCS: 71046; 80048; 80061; 84443; 84484; 85025; 85610; 85730; 87635; 93005; 93306; 93454; 99152; 99153; 99285; J7030; Q9957; Q9967; A4216; C1769; C1894; C8929